=== PATIENT | male | born 1940 | race Caucasian/White ===

== ENCOUNTER 2020-12-10 12:16 | Emergency (ER) | payer MEDICARE, OTHER ==
[~2020-12-10 12:16] MED LIST: ASCORBIC ACID500 MG PO; ASPIRIN CHEWABL81 MG PO; COZAAR 25MG TAB25 MG PO; LOVAZA1 GM PO; MELOXICAM15 MG PO; ONE DAILY1 EACH PO; PERCOCET 5-3251 EACH PO; TOPROL XL 25MG25 MG PO; XARELTO10 MG PO; ZOCOR20 MG PO
[2020-12-10 12:45] LABS: BASOPHIL 0.1 % (0-2); EOSINOPHIL 0 % (0-7); HCT 36.8 % (42.0-52.0); HGB 12.1 g/dl (13.2-18.0); MCH 29.4 pg (25.0-31.0); MCHC 32.9 g/dL (32.0-36.0); MCV 89.5 fL (78.0-100.0); MONOCYTE 2.3 % (0-12); MPV 9.7 fL (6.0-9.5); NRBC 0; PLT 336 K/uL (150-400); RBC 4.11 M/uL (4.70-6.00); RDW 16.7 % (11.5-14.0); WBC 7.8 K/uL (4.0-10.5)
[2020-12-10 12:46] LABS: NEUTROPHIL 90.8 % (41-80)
[2020-12-10 13:02] LABS: ALBUMIN 2.3 g/dL (3.4-5.0); BILIRUBIN - TOTAL 0.9 mg/dL (0.2-1.0); BUN/CREAT RATIO (CALC) 28.3 RATIO; CREATININE 0.99 mg/dL (0.67-1.17); POTASSIUM 4.8 mmol/L (3.5-5.1); TOTAL PROTEIN 7.3 g/dL (6.4-8.2)
[2020-12-10 13:16] LABS: LACTIC ACID 6.7 mmol/L (0.4-1.9)
[2020-12-10 15:09] LABS: BILIRUBIN NEGATIVE (NEGATIVE); BLOOD NEGATIVE Ery/uL (NEGATIVE); CLARITY CLEAR (CLEAR); COLOR YELLOW (YELLOW); GLUCOSE (U) NORMAL (NORMAL); LEUKOCYTES NEGATIVE Leu/uL (NEGATIVE); NITRITE NEGATIVE (NEGATIVE); PROTEIN NEGATIVE (NEGATIVE); UROBILINOGEN 0.2 mg/dL (0.2-1.0); pH 6.5 (5.0-9.0)
[2020-12-10 16:23] LABS: PRO-BNP 4107 pg/mL (<450)
== END 2020-12-11 09:32 | disposition other institution (70) ==
LOC: FER 12:16
PROVIDERS: Allergy & Immunology Allergy; Emergency Medicine
DX: A41.9 Sepsis, unspecified organism (principal); H05.011 Cellulitis of right orbit; I48.91 Unspecified atrial fibrillation; Z20.822 Contact with and (suspected) exposure to COVID-19
CPT/HCPCS: 36415; 70481; 71045; 80053; 81003; 83605; 83880; 84145; 84484; 85025; 87040; 87077; 87186; 93005; J0282; J2405; J2543; J3370; J7030; J7050; J7060; Q9967; U0002